=== PATIENT | male | born 1985 | race Two or more races ===

== ENCOUNTER 2023-08-30 19:47 | Emergency (ER) | payer OTHER ==
[~2023-08-30] VITALS: Ht 185.4 cm; Wt 81.6 kg
[2023-08-30 20:40] LABS: HEMATOCRIT 41.8 % (39.0-48.0); HEMOGLOBIN 14.5 g/dL (13-16.00); MEAN CELL VOLUME 80.7 fL (80.0-100.00); MEAN CORPUSCULAR HEMOGLOBIN 28.1 pg (27.00-32.0); MEAN CORPUSCULAR HGB CONC 34.8 g/dl (32.0-36.0); PLATELET COUNT 135 K/uL (150-450); RED BLOOD COUNT 5.18 M/uL (4.00-6.00); RED CELL DISTRIBUTION WIDTH 13.3 % (11.5-14.5)
[2023-08-30 21:00] LABS: CALCIUM 8.8 mg/dL (8.5-10.1); CREATININE SERUM 1.18 mg/dL (0.70-1.30); GFR 69.09; POTASSIUM 3.83 mEq/L (3.5-5.1)
[2023-08-31 00:10] LABS: URINE APPEARANCE Clear; URINE BACTERIA 12.5 uL (0.0-1933); URINE BILIRRUBIN Negative (NEGATIVE); URINE BLOOD Negative; URINE COLOR Dark Yellow; URINE EPITHELIAL CELLS 11.4 uL (0.0-38.8); URINE GLUCOSE Negative (NEGATIVE); URINE LEUKOCYTE Negative; URINE NITRATE Negative; URINE PROTEIN 30 (NEGATIVE); URINE RBC 6.6 uL (0.0-20.8); URINE WBC 2.3 uL (0.0-23.2)
[2023-08-31] MEDS ORDERED: LEVSIN/SL0.125 MG SL (03:59)
[2023-08-31] MEDS ORDERED: INTESTINEX680 M1 PO (03:59)
== END 2023-08-31 04:21 ==
LOC: ER 19:47
PROVIDERS: Emergency Medicine
DX: K52.89 Other specified noninfective gastroenteritis and colitis (principal); Z20.822 Contact with and (suspected) exposure to COVID-19